=== PATIENT | female | born 1955 | race Caucasian/White ===

== ENCOUNTER 2022-07-01 15:35 | Emergency (ER) | payer MEDICARE, SELFPAY ==
[2022-07-01 15:37] VITALS: BP 162/76; PULSE 84; RESP 16; TEMP 36.6; O2SAT 99; BMI 34.3
[2022-07-01 15:52] LABS: POC Glucose,Bedside 63 (70-110)
[2022-07-01 16:30] LABS: Microscopic, Urine URINE MICROSCOPIC (MICROSCOPIC)
[2022-07-01 16:34] LABS: Basophils # 0.1 K/mm3 (0-0.2); Basophils % 0.8 % (0.1-2.0); Eosinophils # 0.3 K/mm3 (0.0-0.4); Hematocrit 42.6 % (37.0-47.0); Hemoglobin 13.8 g/dL (12.2-16.2); Lymphocytes # 1.8 K/mm3 (0.7-4.5); Lymphocytes % 22.8 % (10-50); Mean Corpuscular HGB Conc 32.4 g/dL (31.8-35.4); Mean Corpuscular Hemoglobin 29.1 pg (27.0-31.2); Mean Platelet Volume 8.7 fl (7.4-10.4); Monocytes # 0.3 K/mm3 (0.1-1.0); Monocytes % 4.3 % (1.7-9.3); Neutrophils # 5.3 K/mm3 (1.8-7.8); Neutrophils % 68.3 % (37.0-80.0); Platelet Count 241 K/mm3 (142-424); Red Blood Count 4.74 M/mm3 (4.20-5.40); Red Cell Distribution Width 13.5 % (11.5-17.5); White Blood Count 7.8 K/mm3 (4.8-10.8)
[2022-07-01 16:36] LABS: Appearance,Urine CLEAR (Clear); Bilirubin,Urine Negative (Negative); Blood, Urine Negative (Negative); Color,Urine YELLOW (Yellow); Glucose,Urine (UA) Negative (Negative); Ketones,Urine Negative (Negative); Leukocyte Esterase,Urine Negative (Negative); Nitrate,Urine Negative (Negative); PH,Urine 5.5 (5.0-8.5); Protein,Urine Negative (Negative); Specific Gravity, Urine 1.025 (1.005-1.030); Urobilinogen,Urine 0.2 EU/dl (0.2)
[2022-07-01 16:54] LABS: Alanine Aminotransferase 13 U/L (12-78); Albumin Level 1.4 g/dl (3.5-5.0); Albumin/Globulin Ratio 0.9 (1.1-1.8); Alkaline Phosphatase 26 U/L (38-126); Anion Gap 4.7 mEq/L (5-15); Aspartate Amino Transferase 19 U/L (14-36); Blood Urea Nitrogen 16 mg/dl (7-17); Carbon Dioxide 13 mmol/L (22.0-30.0); Creatinine Clearance Estimated 83 mL/min (50-200); Estimated Glomerular Filt Rate 222 ml/min (>60); GFR (African American) 268 ML/MIN (>60); Globulin 1.6 g/dL (1.3-3.2); Sodium 145 mmol/L (136-145)
[2022-07-01 16:55] LABS: Bilirubin,Total < 0.1 mg/dl (0.2-1.3)
[2022-07-01 16:57] LABS: Chloride 129 mmol/L (98-107); Glucose 38 mg/dl (74-100); Potassium 1.7 mmoL/L (3.5-5.1)
[2022-07-01 16:58] LABS: Calcium 3.3 mg/dl (8.4-10.2)
[2022-07-01 16:59] LABS: Squamous Epithelial Cell,Urine Occasional #/hpf (0-5); WBC,Urine Occasional #/hpf (0-3)
[2022-07-01 17:28] LABS: POC Glucose,Bedside 193 (70-110)
[2022-07-01 17:33] LABS: Chloride 103 mmol/L (98-107); Sodium 134 mmol/L (136-145)
[2022-07-01 17:35] LABS: Blood Urea Nitrogen 36 mg/dl (7-17); Creatinine Clearance Estimated 83 mL/min (50-200); Estimated Glomerular Filt Rate 55 ml/min (>60); GFR (African American) 67 ML/MIN (>60)
[2022-07-01 17:36] VITALS: BP 121/46; PULSE 85; RESP 20; O2SAT 96
[2022-07-01 17:36] LABS: Alanine Aminotransferase 31 U/L (12-78); Albumin Level 3.8 g/dl (3.5-5.0); Albumin/Globulin Ratio 1.5 (1.1-1.8); Alkaline Phosphatase 82 U/L (38-126); Aspartate Amino Transferase 32 U/L (14-36); Bilirubin,Total 0.2 mg/dl (0.2-1.3); Calcium 8.8 mg/dl (8.4-10.2); Carbon Dioxide 28 mmol/L (22.0-30.0); Globulin 2.5 g/dL (1.3-3.2); Glucose 184 mg/dl (74-100); Total Protein,Serum 6.3 g/dl (6.3-8.2)
--- NOTE | 2022-07-01 17:37 | [facility].EDGENADL ---
Discharge Plan Disposition Patient Disposition: Home, Self-Care Condition: Good Chief Complaint: Hyper/Hypoglycemia Referrals Follow up/Referrals: Renee Larson [Primary Care Provider] - See instructions Clinical Impressions Clinical Impression: Hypoglycemia Diabetes mellitus Qualifiers: Diabetes mellitus type: type 2 Diabetes mellitus correction insulin use: with correction use Diabetes mellitus complication status: without complication Qualified Code(s): E11.9 - Type 2 diabetes mellitus without complications Instructions Patient Instructions: DI for Hyperglycemia -- Adult Discharge ED Provider: Nikolay Navarrete General Adult HPI General Chief complaint: Hyper/Hypoglycemia Stated complaint: Low sugar Time Seen by Provider: 07/01/22 15:46 Mode of Arrival: Ambulatory Source of Information: Patient Limitations: No Limitations Description of Symptoms (Recalled from ER Triage Doc. by RN): Pt reports glucose meter reading LOW bell captain. Pt reports last reading she got on it was in the 40s. Pt reports did eat couple bites of candy bar bell captain. Glucose upon arrival to ED was 63. Pt clammy and states not feeling well, alert and oriented, ambulatory independently. Pt given tyrell mist (requested to not have juice) and sheila crackers. pt reports insulin recently changed, states glucose was elevated in 200s around lunch time reports she took 10 units of lispro insulin as prescribed. History of Present Illness HPI narrative: 66yo F presents to the ER secondary to labile blood glucoses. Reports her blood sugar was 95 upon waking. She had a biscuit for breakfast and her blood sugar was too high. She took her insulin as directed and her blood sugar was too low to be registered on her ebony meter. Report to the ER for further evaluation. She denies any recent illness, skin changes, nausea with vomiting. States they recently changed her diabetic medication regiment and she has had difficult time controlling her blood sugar since then. Of note, the patient had no carbohydrates for lunch. Related Data Allergies Allergy/AdvReac Type Severity Reaction Status Date / Time cinnamon Allergy Severe S-DIFF. Unverified 01/29/17 14:33 BREATHING Sulfa (Sulfonamide Allergy Severe S-SWELLS-OR Unverified 01/29/17 14:33 Antibiotics) AL/THROAT sulfoxone Allergy Severe SWELLING Unverified 01/29/17 14:33 latex Allergy Intermediate I-HIVES Unverified 01/29/17 14:33 Penicillins Allergy Intermediate SWELLING Unverified 01/29/17 14:33 enalaprilat [From VASOTEC] Allergy Unknown Unverified 01/29/17 14:33 VANILLA Allergy Severe S-DIFF. Uncoded 01/29/17 14:33 BREATHING PFSH [facility] Disclaimer: The information contained in this section may have been updated after the patient was seen, as this information can be updated by other users. Social History Smoking Status: Never smoker alcohol intake: never current occupational status: retired Travel in the last 8 weeks: None ROS Obtained: Yes Systems reviewed as appropriate & no additional complaints except as documented Physical Exam General General appearance: alert and in no apparent distress Head Head exam: atraumatic Eye Eye exam: Present PERRL Neck Neck exam: Present trachea midline Respiratory Respiratory exam: Present normal lung sounds bilaterally; Absent respiratory distress Cardiovascular Cardiovascular exam: Present regular rate, normal rhythm and normal heart sounds Extremities Exam Extremities exam: Present full ROM Back Exam Back exam: Present normal inspection Neurological Exam Neurological exam: Present alert and oriented X3 Psychiatric Psychiatric exam: Present normal affect Skin Skin exam: Present warm, dry and intact Medical Decision Making Medical Records Medical records reviewed: Yes I reviewed the patient's medical records. [place] Inquiry Pt receiving controlled substance: No Vital Signs: 07/01/22
[2022-07-01 17:50] VITALS: BP 121/46; PULSE 64; RESP 18; TEMP 36.7; O2SAT 94
== END 2022-07-01 17:51 | disposition home or self-care (01) ==
PROVIDERS: Emergency Provider Family Medicine; PCP Family Medicine
DX: E11.649 Type 2 diabetes mellitus with hypoglycemia without coma (principal)
CPT/HCPCS: 80053; 81001; 82962; 85025; 99284; 99285

== ENCOUNTER 2024-02-04 10:47 | Outpatient (CLI) | payer MEDICARE, SELFPAY | END 2024-02-04 23:59 | disposition home or self-care (01) | LOC: LAB.DROPOF 02-06 10:19 | PROVIDERS: PCP Student in an Organized Health Care Education/Training Program; Visit Provider Student in an Organized Health Care Education/Training Program | DX: J02.9 Acute pharyngitis, unspecified (principal); Z20.822 Contact with and (suspected) exposure to COVID-19 | CPT/HCPCS: 87070; 87635 ==